=== PATIENT | female | born 1970 | race African-American/Black ===

== ENCOUNTER 2016-11-09 12:59 | Emergency (ER) | payer SELFPAY ==
[~2016-11-09] VITALS: Ht 162.6 cm; Wt 80.0 kg
[2016-11-09 13:50] VITALS: BP 162/98
== END 2016-11-09 16:28 | disposition home or self-care (01) ==
LOC: ER 15:24
DX: I10 Essential (primary) hypertension (principal); Z88.0 Allergy status to penicillin; E78.00 Pure hypercholesterolemia, unspecified; Z91.19 Patient's noncompliance with other medical treatment and regimen; Z91.14 Patient's other noncompliance with medication regimen
CPT/HCPCS: 99281; Z7610

== ENCOUNTER 2019-06-30 04:31 | Emergency (ER) | payer BC ==
[~2019-06-30] VITALS: Ht 160 cm; Wt 77.5 kg
[2019-06-30 04:40] VITALS: BP 159/100
== END 2019-06-30 08:52 | disposition left against medical advice (07) ==
LOC: ER 04:31
DX: I10 Essential (primary) hypertension (principal); E78.00 Pure hypercholesterolemia, unspecified; Z53.21 Procedure and treatment not carried out due to patient leaving prior to being seen by health care provider